=== PATIENT | female | born 1980 | race American Indian/Alaskan Native ===

== ENCOUNTER 2017-08-14 07:31 | Outpatient (CLI) | payer OTHER | END 2017-08-14 07:32 | disposition home or self-care (01) | LOC: SONOGRAMA 07:31 → MAMO-SONO 07:45 | DX: K90.9 Intestinal malabsorption, unspecified (principal); R10.9 Unspecified abdominal pain; K21.9 Gastro-esophageal reflux disease without esophagitis ==

== ENCOUNTER 2017-08-28 06:19 | Emergency (ER) | payer OTHER ==
[~2017-08-28] VITALS: Ht 154.9 cm; Wt 47.6 kg
[2017-08-28] MEDS ORDERED: IRBESARTAN (06:32)
[2017-08-28] MEDS ORDERED: TOPROL XL25 M1 (06:32)
[2017-08-28] MEDS ORDERED: CIPRO500 MG PO (10:07)
[2017-08-28] MEDS ORDERED: FLUCONAZOLE150 MG PO (10:07)
== END 2017-08-28 10:34 | disposition home or self-care (01) ==
LOC: ER 06:19
DX: N39.0 Urinary tract infection, site not specified (principal)

== ENCOUNTER 2017-09-11 07:36 | Outpatient (CLI) | payer OTHER ==
[~2017-09-11 07:36] MED LIST: CIPRO500 MG PO; FLUCONAZOLE150 MG PO; IRBESARTAN; TOPROL XL25 M1
== END 2017-09-11 14:53 | disposition home or self-care (01) ==
LOC: SONOGRAMA 07:36 → MAMO-SONO 08:45 → SONOGRAMA 14:53
DX: N20.0 Calculus of kidney (principal)